=== PATIENT | male | born 2000 | race Caucasian/White ===

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

== ENCOUNTER 2021-09-20 17:46 | Emergency (ER) | payer BC, MEDICAID ==
[~2021-09-20] VITALS: Ht 238.8 cm; Wt 77.1 kg
[2021-09-20 18:02] VITALS: BP 127/78
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
--- NOTE | 2021-09-20 18:07 | NUR ---
DR ZAMORA AT THE BEDSIDE
[2021-09-20] MEDS ORDERED: TDAP [DIPH/PERTUSSIS/TET] 0.5 ML VIAL IM ONE ×2 (19:05→19:30)
[2021-09-20] MEDS ORDERED: IBUP-1955 PO (19:08)
--- NOTE | 2021-09-20 19:14 | NUR ---
Patient discharged to home in stable condition. Written and verbal after care instructions given. Patient verbalizes understanding of instruction.
[2021-09-20] MEDS ORDERED: BACI/NEOM/POLY B OINT PKT 1 UDPKT PACKET TP ONE (19:30)
== END 2021-09-20 19:15 | disposition home or self-care (01) ==
LOC: ER 17:59
DX: S62.610A Displaced fracture of proximal phalanx of right index finger, initial encounter for closed fracture (principal); W23.0XXA Caught, crushed, jammed, or pinched between moving objects, initial encounter; Y93.89 Activity, other specified; Y92.89 Other specified places as the place of occurrence of the external cause; Y99.8 Other external cause status
CPT/HCPCS: 73140-TC; 90715

== ENCOUNTER 2022-02-26 18:35 | Emergency (ER) | payer MEDICAID ==
[~2022-02-26] VITALS: Ht 177.8 cm; Wt 74.8 kg
[2022-02-26 18:35] VITALS: BP 145/76
[~2022-02-26 18:35] MED LIST: IBUP-1955 PO
[2022-02-26] MEDS ORDERED: TDAP [DIPH/PERTUSSIS/TET] 0.5 ML VIAL IM ONE ×2 (19:00→19:24)
[2022-02-26] MEDS ORDERED: AMOX-430 PO (19:51)
[2022-02-26] MEDS ORDERED: IBUP-1957 PO (19:51)
== END 2022-02-26 19:57 | disposition home or self-care (01) ==
LOC: ER 18:37
DX: S91.331A Puncture wound without foreign body, right foot, initial encounter (principal); Z79.1 Long term (current) use of non-steroidal anti-inflammatories (NSAID); W45.0XXA Nail entering through skin, initial encounter; Y93.89 Activity, other specified; Y92.89 Other specified places as the place of occurrence of the external cause; Y99.8 Other external cause status
CPT/HCPCS: 73630-TC; 90715